=== PATIENT | male | born 1935 | race Caucasian/White ===

== ENCOUNTER 2018-07-22 10:53 | Inpatient (IN) | payer MEDICARE ==
--- NOTE | 2018-07-22 11:35 | CT ---
CT Brain WO Con History: Left-sided weakness Comparison: None. Findings: No acute hemorrhage. No midline shift or mass effect. Extensive chronic microvascular ische rossana changes. There is a likely subacute infarction of the right edmonds radiata. 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 Hypodens ity of the hernando suggestive of an old infarct. Calvarium is intact. Paranasal sinuses and mastoids are clear. Impression: Findings concerning for a subacute right edmonds radiata white matter infarction superimpo sed upon extensive microvascular ischemic changes.
[2018-07-22 11:40] LABS: #Lymphocytes 1.1 thou/uL (1.20-3.40); #Monocytes 0.3 thou/uL (0.11-0.59); #Neutrophils 4.5 thou/uL (1.40-6.50); %Basophils 0.2 % (0.0-1.0); %Eosinophils 0.3 % (0.0-10.0); %Lymphocytes 18.3 % (21.0-51.0); %Monocytes 5.6 % (0.0-10.0); %Neutrophils 75.7 % (42.0-75.0); Hemoglobin 13.5 g/dL (14.0-18.0); Mean Corpuscular HGB CONC 33.6 g/dL (32.0-36.0); Mean Corpuscular Hemoglobin 30.8 pg (27.0-31.0); Mean Corpuscular Volume 91.6 fL (78.0-98.0); Mean Platelet Volume 7.9 fL (7.4-10.4); Platelet Count 179 thou/uL (130-400); RBC Distribution Width 12.6 % (11.5-14.5); Red Blood Cell (RBC) Count 4.39 mill/uL (4.70-6.10); White Blood Cell (WBC) Count 5.9 thou/uL (4.8-10.8)
--- NOTE | 2018-07-22 11:41 | RAD ---
Chest one view HISTORY: Fall. Weakness. FINDINGS: No comparison. Cardiac silhouette is magnified by projection. Pulmonary vasculature is unre markable. Mediastinum is midline. Ill-defined opacity at the left base obscures the left hemidiaphragm. There is also ill-defined opaci ty at the right base that does not obscure the right hemidiaphragm. No evidence of pneumothorax. IMPRESSION: Probable bibasilar infiltrates. Possible left pleural fluid. Cause is not evident. Please consider follow-up PA and lateral views of the chest in full inspiration when patient can unde rgo that exam.
[2018-07-22] MEDS ORDERED: Aspirin Chewable 81 MG TAB ONE (13:20)
[2018-07-22] MEDS ORDERED: cefTRIAXone\\ROCEPHIN 1 GM VIAL ONE (13:20)
[2018-07-22] MEDS ORDERED: Acetaminophen 325 MG TAB PO PRN (13:34)
[2018-07-22] MEDS ORDERED: Ondansetron ODT 4 MG TAB PO PRN (13:34)
--- NOTE | 2018-07-22 14:14 | HP ---
PRIMARY CARE PROVIDER: Dr. Gonsalves. HISTORY OF PRESENT ILLNESS: The patient states he tried to get off the sofa this morning. His left leg and arm would not work right. He denies headaches, dizziness, visual disturbance. He was brought to the emergency room. Brain CT suggested a subacute right infarction. He was referred to the Hospitalist Service. PAST MEDICAL HISTORY: Hypertension. CURRENT MEDICATIONS: 1. Clonidine 0.1 mg p.r.n. for systolic blood pressure greater than 160. 2. Aspirin 81 mg a day. 3. Lisinopril 40 mg a day. 4. Metoprolol 50 mg twice a day. ALLERGIES: NONE. PAST SURGICAL HISTORY: None. FAMILY HISTORY: His mother had hypertension and a stroke. Father unknown. SOCIAL HISTORY: . 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 No tobacco. He drinks 1 to 2 beers maybe a day. REVIEW OF SYSTEMS: GENERAL: No headaches, dizziness, or fainting. EYES: No double vision, blurred vision, flashing light. EAR, NOSE, THROAT: No ear pain or drainage. No nasal bleeding. No trouble swallowing. CARDIAC: No chest pain, orthopnea or paroxysmal nocturnal dyspnea. RESPIRATION: No cough, wheezing or asthma. GASTROINTESTINAL: No nausea, vomiting, abdominal pain, diarrhea, or constipation. GENITOURINARY: No hematuria, dysuria, nocturia. MUSCULOSKELETAL: No pain or swelling in his arms or legs. NEUROLOGICAL: No previous stroke. PSYCHIATRIC: No anxiety, depression. SKIN: He bruises easily. No rash. HEME/LYMPH: No tender or swollen lymph nodes in axilla, inguinal, or cervical area. PHYSICAL EXAMINATION: GENERAL: Alert, oriented, cooperative man. VITAL SIGNS: Blood pressure 175/81, pulse 65, respirations 18, temperature 98.2, room air sat 94%. HEENT: Examination of his head, eyes, ears, nose, and throat revealed pupils are equal, round, and reactive. Extraocular movements are intact. Sclerae are white. Tympanic membranes clear. Nose clear. Oral mucous membranes are wet. Dental hygiene, multiple caries. NECK: No jugular venous distention, adenopathy, or thyromegaly. CHEST: Clear to auscultation and percussion. HEART: Regular rate and rhythm. First and second second heart sounds clear. No murmurs or gallops. ABDOMEN: Soft. Bowel sounds are normal. There is no hepatosplenomegaly. No mass. No rebound. EXTREMITIES: Reveal no cyanosis, clubbing, or edema. PULSES: Carotid, radial, femoral and dorsalis pedis pulses intact. SKIN: Warm and dry with ecchymoses on his arms. LYMPHATIC SURVEY: No tender or swollen lymph nodes in axilla, inguinal, or cervical area. NEUROLOGICAL: Cranial nerves revealed a left central seventh palsy. Deep tendon reflexes increased on the left. His foot and hand strength are normal. His proximal muscle strength is very weak on the left side. Toe is upgoing bilaterally. IMAGING STUDIES: CT scan of the brain reviewed by me reveals no acute finding. The radiologist suggest subacute infarction in the right edmonds radiata. Chest x-ray, supine film, poor inspiration. Left hemidiaphragm is not clear. The right hemidiaphragm is clear, but there was question of an infiltrate, reviewed by me. LABORATORY DATA: White count 5.9, hemoglobin 13.5, platelet count 117,000. Troponin less than 0.01. C-reactive protein less than 0.05. I do not know why that was not done. There is no comprehensive metabolic profile available at this point. ADMITTING DIAGNOSES: 1. 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 2. Hypertension, under controlled. 3. Abnormal chest x-ray. No history of fever, chills, significant cough. Physical examination was unrevealing. White count is normal. I doubt CVA. We will hold antibiotics at this point. Blood cultures have been done. We will repeat CBC. Suggest repeat chest x-ray tomorrow. We will give aspirin. Start Lipitor 40 mg a day. Neurology consult. MRI for his stroke and control his hypertension. Job ID: [id number]
[2018-07-22 16:45] VITALS: BMI 24.2
[2018-07-22] MEDS ORDERED: Lorazepam 2 MG/ML VIAL SLOW IVP SCH (17:15)
[2018-07-22] MEDS: Atorvastatin Calcium 40 MG TAB PO SCH (21:08)
--- NOTE | 2018-07-22 22:34 | CON ---
DATE OF CONSULTATION: 07/22/2018 CONSULTING PHYSICIAN: Hospitalist Service. IMPRESSION: 1. Right edmonds radiata stroke resulting in left hemiparesis. 2. Hypertension. 3. Aspirin failure. PLAN: 1. Lipid profile. 2. Carotid ultrasound. 3. Echocardiogram. 4. Add Plavix 75 mg per day. 5. Add Lipitor 20 mg per day. 6. PT and OT evaluations for rehab screening. HISTORY OF PRESENT ILLNESS: Mr. Abdi is an 83-year-old gentleman who developed left-sided weakness 3 days ago. He did not seek medical attention right away. He feels like he has gotten a little better. He has no past history of stroke symptoms. He reports that he was taking aspirin daily. PAST MEDICAL HISTORY: As listed above. ALLERGIES: NONE. SOCIAL HISTORY: No tobacco or alcohol use. FAMILY HISTORY: Positive for stroke. MEDICATION LIST: Reviewed. REVIEW OF SYSTEMS: Ten-system review of systems is otherwise unremarkable. PHYSICAL EXAMINATION: GENERAL: He is a thin elderly gentleman, no acute distress. VITAL SIGNS: Blood pressure 154/78, pulse 57, respirations 18, temperature 97.7. HEENT: Pupils equal and reactive. Conjunctivae clear. Oropharynx clear. NECK: Supple. No lymphadenopathy. EXTREMITIES: No cyanosis or edema. NEUROLOGIC: He was alert and cooperative. His speech was fluent and clear. Cranial nerve exam showed flattening of the left nasolabial fold. Motor exam showed only partial antigravity strength in the left arm and leg. Sensation was intact to touch. No abnormal movements were seen. LABORATORY DATA: Laboratory studies only include a CBC and chemistry panel. Cholesterol ratio was 4.5. SUMMARY: Elderly gentleman with acute lacunar infarction, failed aspirin. I would advance him to Plavix and add a statin. Job ID: [id number]
[2018-07-23 05:59] LABS: #Eosinphils 0.1 thou/uL (0.0-0.7); #Lymphocytes 1.1 thou/uL (1.20-3.40); #Monocytes 0.4 thou/uL (0.11-0.59); #Neutrophils 3.4 thou/uL (1.40-6.50); %Basophils 0.3 % (0.0-1.0); %Eosinophils 1.4 % (0.0-10.0); %Lymphocytes 22.6 % (21.0-51.0); %Monocytes 7.5 % (0.0-10.0); %Neutrophils 68.3 % (42.0-75.0); Hemoglobin 13.4 g/dL (14.0-18.0); Mean Corpuscular Hemoglobin 31.2 pg (27.0-31.0); Mean Corpuscular Volume 91.6 fL (78.0-98.0); Mean Platelet Volume 7.9 fL (7.4-10.4); Platelet Count 162 thou/uL (130-400); RBC Distribution Width 12.5 % (11.5-14.5); Red Blood Cell (RBC) Count 4.29 mill/uL (4.70-6.10); White Blood Cell (WBC) Count 4.9 thou/uL (4.8-10.8)
[2018-07-23] MEDS ORDERED: Lorazepam 2 MG/ML VIAL SLOW IVP SCH (06:00)
[2018-07-23 06:21] LABS: Anion Gap 11 mmol/L (10-20); BUN (Urea Nitrogen) 8 mg/dL (8.4-25.7); Calc. Creatinine Clearance 85 mL/min (70-130); Calcium 9.1 mg/dL (7.8-10.44); Carbon Dioxide 29 mmol/L (23-31); Cardiac Risk 3.2 (Less than 4.5); Chloride 97 mmol/L (98-107); Cholesterol 170 mg/dl (< 200 Desired); Estimated GFR-MDRD Greater than 90; Glucose 95 mg/dL (83-110); HDL Cholesterol 53 mg/dL (>60 Neg Risk); LDL Cholesterol, Calculated 103 mg/dL; Potassium 3.6 mmol/L (3.5-5.1); Sodium 133 mmol/L (136-145); Triglycerides 69 mg/dL (Less than 150)
[2018-07-23] MEDS ORDERED: Clopidogrel Bisulfate 300 MG TAB PO SCH (07:15)
--- NOTE | 2018-07-23 07:28 | PDOC.PN ---
- Subjective Encounter Start Date: 07/23/18 Encounter Start Time: 07:26 Subjective: alert, reports increaed strength affected side - Objective Resuscitation Status - Order Detail: 07/22/18 13:31 Resuscitation Status Routine Resuscitation Status: FULL: Full Resuscitation MAR Reviewed: Yes Vital Signs & Weight: Vital Signs (12 hours) Temp Pulse Resp BP BP Pulse Ox 07/23/18 03:51 97.8 F 62 18 183/73 H 94 L 07/23/18 00:00 97.6 F 60 18 153/71 H 93 L 07/22/18 20:34 95 07/22/18 20:00 97.4 F L 60 18 143/57 H 95 Weight Weight 173 lb 12.8 oz I&O: 07/22/18 07/23/18 07/24/18 06:59 06:59 06:59 Intake Total 240 Balance 240 Result Diagrams: 07/23/18 05:19 07/23/18 05:19 Phys Exam - Physical Examination Neck: no JVD Respiratory: clear to auscultation bilateral Cardiovascular: RRR, no significant murmur Gastrointestinal: soft, no distention Musculoskeletal: no edema L central 7th palsy, increased strenght against gravity on L Dx/Plan (1) CVA (cerebral vascular accident) Code(s): I63.9 - CEREBRAL INFARCTION, UNSPECIFIED Status: Acute Qualifiers: CVA mechanism: thrombosis Laterality of affected vessel: right (2) HTN (hypertension) Code(s): I10 - ESSENTIAL (PRIMARY) HYPERTENSION Status: Chronic Qualifiers: Hypertension type: essential hypertension Qualified Code(s): I10 - Essential (primary) hypertension (3) Hemiplegia and hemiparesis following cerebral infarction affecting left dominant side Code(s): I69.352 - HEMIPLGA FOLLOWING CEREBRAL INFRC AFF LEFT DOMINANT SIDE Status: Acute - Plan plan discussed w/ family, PT/OT load with plavix, then 75 mg daily -: ASA 81 mg daily -: statin -: rehab referral * .
[2018-07-23] MEDS: Aspirin 81 mg Enteric Coated Tablet PO SCH (08:11)
[2018-07-23] MEDS: Lisinopril 20 MG TAB PO SCH (08:13)
[2018-07-23] MEDS: Metoprolol Tartrate 50 MG TAB PO SCH ×2 (08:13→17:50)
[2018-07-23] MEDS: Enoxaparin Sodium 40 MG/0.4 ML SYRINGE SC SCH (08:14)
--- NOTE | 2018-07-23 08:14 | RAD ---
CHEST 1 VIEW: Date: 07/23/18 HISTORY: Chest pain. COMPARISON: Radiograph from prior day. FINDINGS: The previously described opacities in the lower lobe have resolved given the upright view. Lungs are clear. No pneumothorax. No effusion. No acute osseous abnormality. IMPRESSION: No acute intrathoracic abnormality. POS: [facility]
--- NOTE | 2018-07-23 08:53 | MRI ---
Brain MRI without contrast: 07/23/2018 COMPARISON: None HISTORY: Left-sided weakness TECHNIQUE: Multiplanar multisequence MR imaging of the brain obtained without contrast FINDINGS: The diffusion weighted imaging demonstrates a focus of restricted diffusion consistent with acute infarction measuring 1.6 cm in AP dimension involving the deep and periventricular white matter superior to the basal ganglia on the right. There is associated increased T2 and FLAIR signal. No associated midline shift or mass effect. There are numerous scattered foci of increased T2 and FLAIR signal throughout the periventricular, de ep, and subcortical white matter, evidence of prominent small vessel disease. There is moderate diffuse cerebral volume loss with associated prominence of the CSF containing space s. There is an old lacunar infarction within the midportion of the hernando. Gradient echo imaging demonstrates no evidence for intracranial hemorrhage. The regional bone marrow signal intensity appears grossly unremarkable. The visualized paranasal sinuses and mastoid air cells are grossly unremarkable. Arterial flow voids at the axial level of the skull base appear grossly unremarkable. IMPRESSION: Acute infarction on the right as detailed above. Prominent small vessel disease. No evide nce for intracranial hemorrhage.
[2018-07-23] MEDS ORDERED: Aspirin 325 mg Enteric Coated Tablet PO SCH (09:00)
--- NOTE | 2018-07-23 10:28 | ULT ---
CAROTID ARTERIAL DOPPLER ULTRASOUND: 07/23/2018 COMPARISON: None. HISTORY: Stroke. Assess for carotid artery disease. TECHNIQUE: Multiplanar gil-scale sonographic imaging of the arterial structures of the neck obtained with color -flow and spectral analysis. FINDINGS: There is mild intimal thickening involving the proximal right CCA. Antegrade blood flow and normal a rterial waveforms are seen within the carotid and vertebral system on the right. There is calcified plaque within the distal right CCA and proximal right ICA. There is partially calcified atherosclerotic plaque within the left CCA. There is mild intimal thick ening of the proximal left CCA. Antegrade blood flow and normal arterial waveforms are documented within the left carotid and vertebral system. Peak systolic velocity within the right CCA is 92 cm/s and within the left CCA is 70 cm/s. Peak syst olic velocity within the right internal carotid artery is 148 cm/s and within the left internal carotid artery is 111 cm/s. The ICA/CCA ratio is 1.6 bilaterally. IMPRESSION: Elevated velocity within the right internal carotid artery correlates with a moderate degree of steno sis (50%-69%). This could be better assessed via CT angiogram of the neck. Transcribed Date/Time: 07/23/2018 10:51 AM
--- NOTE | 2018-07-23 13:28 | PDOC.EVN ---
Event Note - Event Note Event Note: MRI Positive for acute CVA- cont current Tx
[2018-07-23] MEDS ORDERED: hydrALAZINE 20 MG/ML VIAL SLOW IVP PRN (16:55)
[2018-07-23] MEDS ORDERED: Labetalol HCl 100 MG/20 ML VIAL SLOW IVP PRN (16:55)
[2018-07-23] MEDS ORDERED: Amlodipine 5 MG TAB PO SCH (17:00)
[2018-07-23] MEDS: Atorvastatin Calcium 40 MG TAB PO SCH (20:07)
[2018-07-23] MEDS: Zolpidem Tartrate 5 MG TAB PO PRN (20:20)
[2018-07-23] MEDS ORDERED: Prevnar 13-Val Conj/PF 0.5 ML SYRINGE IM ONE (21:00)
[2018-07-24] MEDS: Metoprolol Tartrate 50 MG TAB PO SCH ×2 (08:47→16:45)
[2018-07-24] MEDS: Lisinopril 20 MG TAB PO SCH (08:47)
[2018-07-24] MEDS: Aspirin 81 mg Enteric Coated Tablet PO SCH (08:47)
[2018-07-24] MEDS: Enoxaparin Sodium 40 MG/0.4 ML SYRINGE SC SCH (08:48)
[2018-07-24] MEDS: Clopidogrel Bisulfate 75 MG TAB PO SCH (08:48)
[2018-07-24] MEDS ORDERED: Amlodipine 5 MG TAB PO SCH ×3 (09:00→21:00)
--- NOTE | 2018-07-24 13:04 | CT ---
CTA NECK: Multiple axial tomograms were obtained through the neck with IV enhancement following an angio protoc ol with multiplanar reconstruction and 3D post processing. INDICATIONS: Abnormal carotid Doppler ultrasound. Carotid Doppler exam 07/23/2018 described evidence of hemodynami kev significant stenosis in the right internal carotid artery. FINDINGS: No evidence of stenosis seen at the origin of the arch vessels. Common carotid arteries are unremarkable bilaterally with no stenosis or significant atherosclerotic disease. The right bulb and proximal right ICA show moderate atherosclerotic change with densely calcified khang que in the proximal right ICA. There is soft plaque slightly above the bulb. These changes result i n stenosis of the right internal carotid artery. The degree of stenosis is calculated at 50-60% diam eter stenosis by NASCET criteria. This is hemodynamically significant and does correlate with caroti d velocities. The left common carotid bifurcation also shows atherosclerotic change and mild stenosis of the proxim al left internal carotid artery. The left internal carotid artery is very tortuous above the bulb wi th a mild kink which produces mild to moderate stenosis. There is aneurysmal dilatation just beyond this sharp kink measured at approximately 6 mm. The normal limit at this location measured approxima tely 4 mm. The left internal carotid artery is slightly smaller than the right. The degree of steno sis at the origin of the left ICA is determined at mild stenosis, less than 50% diameter when compare d to the more distal left ICA. Review of soft tissues shows evidence of right hilar adenopathy. This is seen on the very 1st image and is incompletely evaluated. Suggest further evaluation with chest CT. No other soft tissue abnormality in the neck identified. IMPRESSION: 1. Evidence of hemodynamically significant stenosis in the right proximal internal carotid artery w ith moderate atherosclerotic changes at this location. 2. Kink in the left internal carotid artery above the bulb with tortuosity. There is slight aneurys mal dilatation in this artery just above this kink. Mild stenosis at the origin of the left internal carotid artery due to atherosclerotic change. 3. Soft tissue evaluation shows evidence of right hilar adenopathy on the very 1st image of this exa m. This is incompletely evaluated. Recommend CT chest with contrast to further evaluate this jairin g. POS: [facility]
[2018-07-24] MEDS ORDERED: hydrALAZINE 25 MG TAB PO SCH (15:00)
[2018-07-24] MEDS ORDERED: Atorvastatin Calcium 20 MG TAB PO SCH (21:00)
--- NOTE | 2018-07-24 21:36 | PDOC.PN ---
- Subjective Encounter Start Date: 07/24/18 Encounter Start Time: 11:30 Patient seen and examined for Acute CVA. Left sided strength improving. No new deficits. No new complaints. No overnight events - Objective Resuscitation Status - Order Detail: 07/22/18 13:31 Resuscitation Status Routine Resuscitation Status: FULL: Full Resuscitation MAR Reviewed: Yes Vital Signs & Weight: Vital Signs (12 hours) Temp Pulse Pulse Pulse Resp BP BP 07/24/18 19:45 97.9 F 59 L 16 07/24/18 16:44 66 07/24/18 16:00 98 F 66 16 07/24/18 15:42 61 65 154/74 H 172/65 H 07/24/18 11:43 56 L 07/24/18 11:32 97.5 F L 56 L 18 BP Pulse Ox Pulse Ox 07/24/18 19:45 149/69 H 96 07/24/18 16:44 07/24/18 16:00 172/65 H 98 07/24/18 15:42 98 07/24/18 11:43 07/24/18 11:32 207/99 H 96 Weight Weight 173 lb 12.8 oz I&O: 07/23/18 07/24/18 07/25/18 06:59 06:59 06:59 Intake Total 240 680 720 Output Total 650 1150 Balance 240 30 -430 Result Diagrams: 07/23/18 05:19 07/23/18 05:19 Radiology Reviewed by me: Yes (MRI - Acute Rt sided CVA) EKG Reviewed by me: Yes (Tele SR) Phys Exam - Physical Examination Constitutional: NAD Respiratory: no wheezing, no rales, no rhonchi, clear to auscultation bilateral Cardiovascular: RRR, no rub no heave/pulsations Gastrointestinal: soft, non-tender, no distention, positive bowel sounds Musculoskeletal: no edema, pulses present Neurological: normal sensation LLE>LUE weakness, no new deficits Psychiatric: normal affect, A&O x 3 Skin: no rash Dx/Plan - Plan plan discussed w/ family, PT/OT, rn social work, speech therapy, DVT proph w/ lovenox, DVT proph w/SCDs IMPRESSION: Acute Rt sided CVA causing Left sided hemiparesis HTN urgency Carotid stenosis Mild hyponatremia Mild anemia - chronic PLAN: Cont ASA/Plavix Add Echo Add CT neck per radiology recs Cont Statins Stroke team To rehab once above w/u completed Review of Systems - Review of Systems Respiratory: negative: Cough, Dry, Shortness of Breath, Hemoptysis, SOB with Excertion, Pleuritic Pain, Sputum, Wheezing Cardiovascular: negative: chest pain, palpitations, orthopnea, paroxysmal nocturnal dyspnea, edema, light headedness, other - Medications/Allergies Allergies/Adverse Reactions: Allergies Allergy/AdvReac Type Severity Reaction Status Date / Time No Known Allergies Allergy Verified 07/22/18 16:53 Medications: Current Medications Acetaminophen (Tylenol) 650 mg PO Q4H PRN PRN Reason: Headache/Fever/Mild Pain (1-3) Amlodipine Besylate (Norvasc) 5 mg PO DAILY [facility] Aspirin (Ecotrin) 81 mg PO DAILY [facility] Last Admin: 07/24/18 08:47 Dose: 81 mg Atorvastatin Calcium (Lipitor) 20 mg PO HS [facility] Last Admin: 07/24/18 20:52 Dose: 20 mg Clopidogrel Bisulfate (Plavix) 75 mg PO DAILY [facility] Last Admin: 07/24/18 08:48 Dose: 75 mg Hydralazine HCl (Apresoline) 10 mg SLOW IVP Q4H PRN PRN Reason: SBP > 180 and HR < 70 Last Admin: 07/24/18 11:43 Dose: 10 mg Lisinopril (Zestril) 40 mg PO DAILY [facility] Last Admin: 07/24/18 08:47 Dose: 40 mg Metoprolol Tartrate (Lopressor) 50 mg PO BID-[facility] Last Admin: 07/24/18 16:45 Dose: 50 mg Ondansetron HCl (Zofran Odt) 4 mg PO Q6H PRN PRN Reason: Nausea/Vomiting Sodium Chloride (Flush - Normal Saline) 10 ml IVF PRN PRN PRN Reason: Saline Flush Last Admin: 07/23/18 08:14 Dose: 10 ml Zolpidem Tartrate (Ambien) 5 mg PO HSPRN PRN PRN Reason: Insomnia Last Admin: 07/23/18 20:20 Dose: 5 mg
[2018-07-24] MEDS: Zolpidem Tartrate 5 MG TAB PO PRN (21:46)
--- NOTE | 2018-07-25 00:05 | CON ---
DATE OF CONSULTATION: HISTORY OF PRESENT ILLNESS: This is a very pleasant 83-year-old gentleman who noticed he had some clumsiness when trying to walk in the park about 5 days ago with his son. He fell down at that point. Two days later, he presented to Dr. Gonsalves's office who recommended a visit at the hospital; however, the patient deferred. On Saturday, he was unable to stand up and walk and slid to the floor due to left-sided weakness. He was admitted to the hospital with left hemiparesis. His cardiovascular risk factors include his age and hypertension with no smoking history and no known cholesterol elevation. SOCIAL HISTORY: He is retired from [employer]. He lives with his and son who works at the [employer]. He enjoys outdoor activities. PAST SURGICAL HISTORY: Negative. PHYSICAL EXAMINATION: GENERAL: Alert, cooperative gentleman. VITAL SIGNS: 5 foot 11 inches, 173 pounds. Blood pressure is , heart rate is 70. NECK: Without carotid bruits. LUNGS: He has clear lung duff. CARDIAC: Regular rate and rhythm. No murmurs. ABDOMEN: Obese, nontender. He has no aneurysm. EXTREMITIES: He has palpable femoral and popliteal pulses with no pedal pulses. He can easily lift his left leg against gravity; however, his arm function is markedly decreased. He is able to raise his arm against gravity and has a very weak diversified crops ii farmworker. He states these are better than they were when he presented to the hospital. LABORATORY DATA: I have reviewed his ultrasound suggesting a 50% to 69% stenosis and a CTA scan showing about 50% to 60% stenosis on the right. He has a very small ulceration in his right carotid bulb posteriorly. ASSESSMENT AND PLAN: Since the patient's medications included only clonidine and metoprolol and lisinopril at home and not aspirin, I think the addition of aspirin and Plavix are appropriate. If the ulcerated plaque was the source of his stroke, then the aspirin and Plavix should suffice. I will follow up with him in about 6 months with an ultrasound, but at this time, his stenosis does not appear to be severe enough to suggest that intervening on this would decrease his stroke risk in the future. Rehab hopefully will show continued improvement in this pleasant gentleman. Job ID: [id number]
[2018-07-25] MEDS ORDERED: Amlodipine 5 MG TAB PO SCH (09:00)
[2018-07-25] MEDS: Clopidogrel Bisulfate 75 MG TAB PO SCH (09:34)
[2018-07-25] MEDS: Lisinopril 20 MG TAB PO SCH (09:34)
[2018-07-25] MEDS: Aspirin 81 mg Enteric Coated Tablet PO SCH (09:34)
[2018-07-25] MEDS: Metoprolol Tartrate 50 MG TAB PO SCH (09:35)
[2018-07-25 12:14] VITALS: BP 177/74; TEMP 97.8
--- NOTE | 2018-07-25 12:37 | DIS ---
DATE OF ADMISSION: 07/22/2018 DATE OF DISCHARGE: 07/25/2018 DISCHARGE DISPOSITION: Inpatient rehabilitation. FOLLOWUP: 1. Follow up with primary care physician, Dr. Gonsalves in 1 week. 2. Follow up with Dr. Esau Sampson, in 2 weeks. 3. Follow up with Dr. Nitish Garcia in 1 to 2 months. ALLERGIES: NO KNOWN DRUG ALLERGIES. THE PATIENT WAS SEEN AND EXAMINED ON THE DAY OF DISCHARGE. DENIES ANY NEW COMPLAINTS. NO NEW FOCAL DEFICIT. DISCHARGE MEDICATION: 1. Aspirin 81 mg daily. 2. Plavix 75 mg daily. 3. Lipitor 20 mg at bedtime. 4. Amlodipine 5 mg b.i.d. 5. Metoprolol tartrate 50 mg b.i.d. 6. Lisinopril 40 mg daily. 7. Benadryl as needed. 8. Tylenol as needed. INPATIENT CONSULTANTS: 1. Neurology Dr. Sampson. 2. Cardiovascular, Dr. Garcia. BRIEF HOSPITAL COURSE: The patient is an 83-year-old male with hypertension, currently taking 81 mg aspirin, presented to the hospital with left-sided weakness. His workup was consistent with acute CVA. MRI of the brain was positive for 1.6 cm in the AP dimension involving the deep and periventricular white matter superior to the basal ganglia on the right. He was seen by Neurology, Dr. Sampson, who recommended admission of Plavix. Carotid Dopplers showed moderate degree of stenosis in the right internal carotid artery. He underwent CTA and was also evaluated by Dr. Garcia. He will follow up with Dr. Garcia as outpatient. His echocardiogram showed left ventricular ejection fraction of 60% to 65% with 1/3 diastolic dysfunction. He will be discharged to inpatient rehabilitation. FINAL DIAGNOSES: 1. Acute cerebrovascular accident as discussed above causing left-sided hemiparesis. 2. Hypertension with hypertensive urgency. 3. Right carotid stenosis. He was advised to follow up with Dr. Garcia as outpatient. 4. Hyperlipidemia. 5. Mild hyponatremia. 6. Mild chronic anemia. TIME SPENT: Total time coordinating the discharge of this patient was 35 minutes. Job ID: [id number]
--- NOTE | 2018-07-26 16:10 | EKG ---
Test Reason : Blood Pressure : / mmHG Vent. Rate : 064 BPM Atrial Rate : 064 BPM P-R Int : 170 ms QRS Dur : 090 ms QT Int : 434 ms P-R-T Axes : 036 002 052 degrees QTc Int : 447 ms Normal sinus rhythm Normal ECG No ST elevation/NE Confirmed by JOSH KHAN M.D. ([id number]), editorial specialist MORENA URIBE ([id number]) on 07/26/2018 4:10:23 PM Referred By: Confirmed By:JOSH KHAN M.D.
== END 2018-07-25 11:54 | DRG 65 ==
LOC: ERS 10:53 → 2SE 15:07
PROVIDERS: ADMIT Internal Medicine; ATTEND Internal Medicine
DX: I63.81 Other cerebral infarction due to occlusion or stenosis of small artery (principal); G81.14 Spastic hemiplegia affecting left nondominant side; E87.1 Hypo-osmolality and hyponatremia; I10 Essential (primary) hypertension; G51.0 Bell's palsy; F32.9 Major depressive disorder, single episode, unspecified; R29.705 NIHSS score 5; I16.0 Hypertensive urgency; D64.9 Anemia, unspecified; I65.21 Occlusion and stenosis of right carotid artery; Z79.82 Long term (current) use of aspirin; Z79.899 Other long term (current) drug therapy
CPT/HCPCS: 36415; 70450; 70498; 70551; 71045; 80048; 80061; 84484; 85025; 86140; 87040; 90471; 90670; 93005; 93306; 93880; 96365; G0009; J0360; J0696; J1650; J2060

== ENCOUNTER 2018-12-24 09:42 | Inpatient (IN) | payer MEDICARE ==
[2018-12-24 10:44] LABS: #Lymphocytes 0.7 thou/uL (1.20-3.40); #Monocytes 0.8 thou/uL (0.11-0.59); #Neutrophils 10.2 thou/uL (1.40-6.50); %Basophils 0.2 % (0.0-1.0); %Eosinophils 0.2 % (0.0-10.0); %Lymphocytes 5.8 % (21.0-51.0); %Monocytes 6.5 % (0.0-10.0); %Neutrophils 87.2 % (42.0-75.0); Hemoglobin 8.7 g/dL (14.0-18.0); Mean Corpuscular Volume 96.9 fL (78.0-98.0); Mean Platelet Volume 6.9 fL (7.4-10.4); Platelet Count 228 thou/uL (130-400); RBC Distribution Width 13.7 % (11.5-14.5); Red Blood Cell (RBC) Count 2.91 mill/uL (4.70-6.10); White Blood Cell (WBC) Count 11.7 thou/uL (4.8-10.8)
[2018-12-24 11:02] LABS: ALT (SGPT) 10 U/L (8-55); AST (SGOT) 17 U/L (5-34); Albumin 3.7 g/dL (3.4-4.8); Alkaline Phosphatase 73 U/L (40-110); Anion Gap 15 mmol/L (10-20); BUN (Urea Nitrogen) 14 mg/dL (8.4-25.7); Bilirubin, Total 1.2 mg/dL (0.2-1.2); Calc. Creatinine Clearance 0 mL/min (70-130); Calcium 8.9 mg/dL (7.8-10.44); Carbon Dioxide 23 mmol/L (23-31); Chloride 91 mmol/L (98-107); Estimated GFR-MDRD 66; Globulin 2.5 g/dL (2.4-3.5); Glucose 110 mg/dL (83-110); Potassium 3.7 mmol/L (3.5-5.1); Protein, Total 6.2 g/dL (5.8-8.1); Sodium 125 mmol/L (136-145)
--- NOTE | 2018-12-24 11:35 | CT ---
Head CT without contrast 12/24/2018: COMPARISON: 07/22/2018 HISTORY: Fall, trauma TECHNIQUE: Axial CT imaging at 5 mm intervals from vertex through skull base without contrast FINDINGS: Punctate foci of soft tissue calcification again noted superior to the right orbit. Imaged paranasal sinuses appear grossly unremarkable. There is debris within the external auditory canal on the right. There is new nonspecific partial opa cification of the tympanic cavity and mastoid air cells on the right. There is no displaced calvarial fracture. There is periventricular and deep white matter hypodensity, evidence of small vessel disease. There is subarachnoid hemorrhage lateral to the right cerebral peduncle as well as in the right supra clinoid region. There is also subarachnoid blood within the inferior medial aspect of bilateral frontal lobes. There is a questionable focus of small volume intraventricular hemorrhage within the p osterior horn of the left lateral ventricle on axial image 13. Additional subtle small volume subarachnoid blood noted in the region of the inferior aspect of the m iddle cranial fossa on the right on axial image 9. IMPRESSION: Multifocal subarachnoid hemorrhage. Probable trace intraventricular blood within left lat eral ventricle. Results were called to Dr. Casey at 11:30 AM 12/24/2018. Subarachnoid blood could be on the basis of t rauma or intracranial aneurysm rupture.
--- NOTE | 2018-12-24 11:38 | CT ---
CT OF THE CHEST, ABDOMEN AND PELVIS WITH IV CONTRAST INDICATION: History of fall COMPARISON: None. FINDINGS: CHEST: Lungs:Clear. Heart and great vessels:There are moderate calcifications involving the thoracic aorta. Pleural space: No pneumothorax or effusion. Additional findings: Small calcified lymph nodes within the left hilar region and mediastinum. There is a small hiatal hernia. ABDOMEN: Liver:There are tiny hypodensities likely reflecting tiny cysts. Spleen:Calcified granuloma Pancreas:Normal appearing. Adrenal Glands:Normal appearing. Kidneys:Normal appearing. Aorta:There are severe vascular calcifications seen involving the visualized vasculature. Additional findings: No free fluid or free air. PELVIS: Bowel:There is a moderate amount of retained stool within the colon. Bladder:Moderately distended Reproductive structures:The prostate is enlarged measuring 6.2 cm in its greatest axial dimension. Rectum and perirectal soft tissues:Normal appearing. Additional findings: No free fluid or free air. OSSEOUS STRUCTURES: There are healing left posterior lateral ninth and eighth rib fractures. No acute rib fracture is dem onstrated. There is diffuse osteopenia. There is thoracolumbar spondylosis. There is scattered degenerative and osteoarthritic changes. There is a 8 cm subcutaneous hematoma overlying the left posterior iliac iliac bone. IMPRESSION: 1. Large subcutaneous hematoma overlying the left posterior pelvis. 2. No additional acute acute traumatic injury seen. 3. Healing left ninth and eighth rib fractures 4. Moderate distention of the bladder may reflect a component of chronic bladder outlet obstruction f rom prostate enlargement. 5. Moderate amount of retained stool within the colon
--- NOTE | 2018-12-24 11:45 | CT ---
CT OF THE CERVICAL SPINE WITHOUT CONTRAST: DATE: 12/24/18 COMPARISON: None. HISTORY: Fall this morning. Neck pain. TECHNIQUE: Multiple contiguous axial images were obtained in a CT of the cervical spine without contrast. Sagitt al and coronal reformats were performed. FINDINGS: Mild degenerative changes are seen in the cervical spine. The vertebral bodies demonstrate normal hei ght and alignment without fracture or subluxation. No prevertebral soft tissue swelling is seen. The posterior facets are well aligned. Normal alignment of the skull base with the cervical spine is seen. IMPRESSION: Degenerative changes of the cervical spine without acute osseous abnormality. POS: TPC
[2018-12-24 12:12] LABS: PTT 31.5 SEC (22.9-36.1)
[2018-12-24 12:16] LABS: INR-International Normal Ratio 1.1; Prothrombin Time 14.6 SEC (12.0-14.7)
[2018-12-24] MEDS ORDERED: Ondansetron PF 4 MG/2 ML Vial IVP PRN (12:52)
[2018-12-24] MEDS ORDERED: Dextrose 50% Abboject 50 ML SYRINGE SLOW IVP PRN (12:52)
[2018-12-24] MEDS ORDERED: Dextrose 5% in Water 1,000 ML IV PRN (12:52)
[2018-12-24] MEDS ORDERED: HumaLOG 300 UNITS/3 ML VIAL SC PRN (12:52)
[2018-12-24] MEDS ORDERED: hydrALAZINE 20 MG/ML VIAL SLOW IVP PRN (12:52)
[2018-12-24] MEDS ORDERED: Promethazine HCl 25 MG/ML VIAL IM PRN (12:52)
[2018-12-24] MEDS ORDERED: Gabapentin 100 MG CAP PO PRN (12:55)
[2018-12-24] MEDS ORDERED: traMADol HCl 50 MG TAB PO PRN (12:59)
[2018-12-24] MEDS ORDERED: Adacel (T-DAP) 0.5 ML SYRINGE ONE ×2 (13:37→13:49)
[2018-12-24] MEDS ORDERED: Iopamidol-370 76% 500 ML 1 ML ONE (13:52)
--- NOTE | 2018-12-24 15:30 | HP ---
This is Emanuel Napoles PA-C dictating a report for Temo Alvarado MD. HISTORY OF PRESENT ILLNESS: Mr. Abdi is an 83-year-old male, who came to the ER after an incident of ground level fall at home. Historian is the patient's son. The patient's son reports usually his father mobilized around the house using a walker. This morning, patient was reaching to make some coffee, lost his balance and fell. After the fall, the patient's loss of consciousness was unknown, but his mental status came back to his baseline like before. Patient's son also stated that patient has been suffered from multiple fall from home due to his loss of balance and using walker wrong way, which resulted many bruising with different stages. He can open his eyes , follow commands and answers question appropriate. Upon arrival in the ER, the patient's GCS is 14 with E3, V5, and M6. Vital signs stable. REVIEW OF SYSTEMS: Noncontributory except per HPI. PAST MEDICAL HISTORY: Hypertension; old stroke 3 to 4 months ago, in which he has weakness of the left side, but he has recovered better after period of rehabilitation facility and rehab at home. UTI, being treated for 2 days with ciprofloxacin 500 mg b.i.d. PAST SURGICAL HISTORY: No major surgical history. SOCIAL HISTORY: Denied drug use. Denied smoking or drinking history. The patient lives at home with his and his son. He is able to bathe himself. He is able to mobilize around the house using a walker. His diet is relatively normal with solid food and liquid. No trouble swallowing. CURRENT MEDICATION: 1. Metoprolol. 2. Hydrochlorothiazide 12.5 every day. 3. Lisinopril 40 mg once a day. 4. Atorvastatin 20 mg once a day. 5. Aspirin 81 mg once a day. 6. Plavix 75 mg once a day. PHYSICAL EXAMINATION: GENERAL: The patient is lying down in bed, in no acute respiratory distress. GCS 14, E3, V5, and M6. The patient oriented x2, consistent with his baseline at home. The patient is well-groomed elderly gentleman. SKIN: Dry. Mucous is dry and pink. HEENT: Ecchymosis of the right eye, but extraocular muscle is normal. Pupils equal bilaterally, reactive to light. No nasal redness or drainage from bilateral ears. NECK: Trachea midline. No bruising. No tender to palpation. CHEST: Atraumatic. No crepitus. No bruising. No tender to palpation. LUNGS: Clear bilaterally. HEART: Regular rate and rhythm. ABDOMEN: Soft, nondistended. PELVIS: Left lower flank and posterior pelvis, hematoma, tender to palpation. Pelvis is stable. EXTREMITIES: Neurovascularly intact x4. No new neuro deficits. LABORATORY AND DIAGNOSTIC DATA: Initial workup shows white count 11.7, hemoglobin 8.7, platelets 228. Sodium 125, potassium 3.7, creatinine 1.07. Brain CT scan shows multifocal subarachnoid hemorrhage, possible trace intraventricular blood within left lateral ventricle. Cervical spine CT, no acute traumatic change. Chest, abdominal, and pelvis CT scan shows large subcutaneous hematoma overlying the left posterior pelvis. His healing left 9th and 8th rib fractures. Moderate distention of the bladder. ASSESSMENT: 1. Status post ground level fall. 2. Multifocal subarachnoid hemorrhage. 3. Left lower posterior pelvis subcutaneous hematoma. 4. History of hypertension, stroke with left-sided hemiparesis. 5. Urinary tract infection, treated day 2 PLAN: The patient will be admitted to [facility] for neuro check q.2 hours. Neurosurgery consulted. We will repeat brain CT tomorrow. Discontinue aspirin and Plavix at the moment. We will resume his home medications. Diet is clear liquid diet for now with IV fluids. Non-pharmacological DVT prophylaxis, gastritis prophylaxis. Notified Dr. Alvarado before this dictation. Job ID: [id number] MTDD
[2018-12-24] MEDS ORDERED: Polyethylene Glycol 3350 17 GM Packet PO PRN (15:47)
[2018-12-24] MEDS: Sodium Chloride 0.9% 1,000 ML IV SCH (15:53)
[2018-12-24] MEDS ORDERED: Milk Of Magnesia 30 ML UDCUP PO SCH (16:00)
[2018-12-24] MEDS: Ferrous Sulfate 325 MG TAB PO SCH (16:12)
[2018-12-24] MEDS: Metoprolol Tartrate 50 MG TAB PO SCH (16:12)
[2018-12-24] MEDS: Acetaminophen 325 MG TAB PO SCH (16:12)
[2018-12-24 16:52] VITALS: BMI 23.8
--- NOTE | 2018-12-24 19:01 | PRG ---
DATE OF SERVICE: 12/24/2018 Rony Abdi is a patient, who has had multiple falls in the past. Past falls had resulted in the left flank, buttocks, thigh hematoma. He fell again today. He was evaluated with CT scan of the brain and cervical spine, chest, abdomen, and pelvis. Significant findings reveal some punctate areas of subarachnoid hemorrhage. The patient has had a stroke in August and spent some time in rehab. His is at home and has severe dementia. The patient has caregivers in and out of his home helping him, but he is at times independent with his walker. I agree with evaluation by Emanuel Napoles. Neurosurgery will see the patient. He has a GCS of 15 now. We will have Rehab evaluate him after Physical Therapy evaluation, see if he is a candidate for further rehab to help his stability to prevent further falls. The bruising over his left buttocks and thighs probably form an old fall. He has healing ribs from past falls. Diet as tolerated. Job ID: [id number]
[2018-12-24] MEDS: Atorvastatin Calcium 20 MG TAB PO SCH (20:43)
[2018-12-24] MEDS: Ciprofloxacin 500 MG TAB PO SCH (20:43)
[2018-12-24] MEDS: Famotidine/PF 20 mg/2ml Vial SLOW IVP SCH (20:43)
[2018-12-24] MEDS: Ascorbic Acid 500 mg Chewable Tablet PO SCH (20:43)
[2018-12-24] MEDS: Senokot S 8.6-50 MG TAB PO SCH (20:44)
--- NOTE | 2018-12-24 21:00 | CON ---
DATE OF CONSULTATION: 12/24/2018 This is Fran Dash PA-C dictating a report for Erik Goodwin MD. HISTORY OF PRESENT ILLNESS: Mr. Abdi is an 83-year-old gentleman, who presented to the ER today after losing his balance and falling at home. The patient lives at home with his and son. The patient had loss of consciousness for an unknown time. However, when he arrived at the ER, he had a GCS of 14 and was somnolent and somewhat confused. CT brain without contrast was completed, which showed a subarachnoid hemorrhage in the right supraclinoid region, as well as small volume interventricular hemorrhage in the posterior horn of the left lateral ventricle. CT of the cervical spine without contrast showed degenerative changes, but no acute osseous abnormalities. The patient has history of recent CVA in July of 2018, for which he subsequently participated in rehab. His home medications include 81 mg aspirin and 75 mg Plavix. Lab findings include sodium of 125, white blood cells of 11.7, and hemoglobin 8.7. Of note, patient with recent UTI and has been on Cipro 500 mg b.i.d. for 2 days. PHYSICAL EXAMINATION: The patient is somnolent, but arousable to verbal stimulation. GCS is 14. The patient is somewhat confused. He is able to state his full name, location at the hospital, and correct month and year. He stated today was , however, it is Saturday. He is able to identify a pen and stated its use. He defines an island as birds. His pupils are equal, round, and reactive to light. Patient has his eyes closed throughout the majority of the exam. However, toward the end of the visit, he did open them more spontaneously when answering questions. Noted right periorbital contusion. The patient has good strength in the trapezius, deltoids, triceps, biceps, and hand retort unloader bilaterally. He also has good strength in his bilateral lower extremities. IMPRESSION/DIAGNOSES: 1. Right subarachnoid hemorrhage and interventricular hemorrhage of the posterior horn of the left lateral ventricle, status post fall this morning. 2. History of prior cerebrovascular accident in July 2018. 3. Anticoagulated on 81 mg aspirin and 75 mg Plavix. 4. Hyponatremia. PLAN: I have discussed the patient's case with Dr. Goodwin. At this time, the patient is admitted to the [facility]. Orders have been written to hold his aspirin and Plavix at this time. We will repeat CT of the brain without contrast tomorrow morning. We will continue to monitor with q.2 hours neuro checks. No neurosurgical intervention is indicated at this time and it is highly unlikely patient will require surgical intervention. However, we will review repeat CT of the brain and monitor patient for any changes in neurological status. We will monitor blood pressure and keep systolic below 140. We will re-evaluate patient tomorrow. Job ID: [id number]
[2018-12-25] MEDS: Sodium Chloride 0.9% 1,000 ML IV SCH ×2 (00:21→06:38)
[2018-12-25] MEDS: Acetaminophen 325 MG TAB PO SCH ×5 (00:21→23:34)
--- NOTE | 2018-12-25 00:58 | PRG ---
DATE OF SERVICE: 12/25/2018 SUBJECTIVE: The patient was admitted today status post ground level fall, in which he sustained a right subarachnoid hemorrhage and intraventricular hemorrhage. The patient reportedly takes Plavix and aspirin. He has a prior history of a CVA this evening. Nurses reported no issues. His evaluation in the emergency department also showed multiple contusions. He had a hematoma to his pelvis area. The patient was noted to have multiple contusions in various stages of healing. 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 PHYSICAL EXAMINATION: VITAL SIGNS: Stable. The patient is afebrile. GENERAL: The patient is resting comfortably in bed. He is currently getting his evening medications from the nurse. His Yomi Coma Scale is 14. He is -1 for eye opening. She states that he has been sleeping as she just awakened him for his medications. HEENT: Head, there was contusion noted to his right periorbital area. LUNGS: Clear to auscultation bilaterally. HEART: Regular rate and rhythm. ABDOMEN: Soft with tenderness to palpation to the bilateral flanks with contusions noted and ecchymosis. The patient does have bowel sounds. EXTREMITIES: Neurovascularly intact x4. ASSESSMENT AND PLAN: 1. Status post ground level fall. 2. Right subarachnoid hemorrhage. 3. Intraventricular hemorrhage of the posterior horn of the left lateral ventricle. 4. Left lower posterior pelvis subcutaneous hematoma. 5. History of aspirin and Plavix use. 6. History of prior cerebrovascular accident. 7. History of hypertension. 8. Under treatment for urinary tract infection. PLAN: Plan will be to continue supportive care. He will have q.2 hour neuro checks and a repeat head CT in the morning, sooner as needed. The patient is having his Plavix and aspirin held. Tomorrow, the patient will begin physical and occupational therapy also. We will ask the Case Management team to discuss with family placement in light of the patient's physical findings of multiple recent falls and his ability to be the caregiver to his demented . The nurses will find out who is helping at home, home health versus family. There have been multiple reports that they do have help at home. Job ID: [id number]
[2018-12-25 05:31] LABS: #Lymphocytes 0.7 thou/uL (1.20-3.40); #Monocytes 0.4 thou/uL (0.11-0.59); #Neutrophils 6.7 thou/uL (1.40-6.50); %Basophils 0.1 % (0.0-1.0); %Lymphocytes 8.3 % (21.0-51.0); %Monocytes 5.1 % (0.0-10.0); %Neutrophils 86.4 % (42.0-75.0); Hemoglobin 7.2 g/dL (14.0-18.0); Mean Corpuscular HGB CONC 33.9 g/dL (32.0-36.0); Mean Corpuscular Hemoglobin 31.4 pg (27.0-31.0); Mean Corpuscular Volume 92.8 fL (78.0-98.0); Mean Platelet Volume 6.6 fL (7.4-10.4); Platelet Count 180 thou/uL (130-400); RBC Distribution Width 13.4 % (11.5-14.5); Red Blood Cell (RBC) Count 2.27 mill/uL (4.70-6.10); White Blood Cell (WBC) Count 7.8 thou/uL (4.8-10.8)
[2018-12-25 05:54] LABS: Phosphorus 2.7 mg/dL (2.3-4.7)
[2018-12-25 05:57] LABS: Anion Gap 12 mmol/L (10-20); BUN (Urea Nitrogen) 14 mg/dL (8.4-25.7); Calc. Creatinine Clearance 71 mL/min (70-130); Calcium 8.6 mg/dL (7.8-10.44); Carbon Dioxide 29 mmol/L (23-31); Chloride 92 mmol/L (98-107); Estimated GFR-MDRD Greater than 90; Glucose 82 mg/dL (83-110); Magnesium 1.8 mg/dL (1.6-2.6); Potassium 3.6 mmol/L (3.5-5.1); Sodium 129 mmol/L (136-145)
[2018-12-25] MEDS: Ciprofloxacin 500 MG TAB PO SCH ×2 (06:24→21:49)
--- NOTE | 2018-12-25 08:29 | CT ---
PRELIMINARY REPORT/[facility]/EMERGENCY AFTER HOURS PROCEDURE: PROCEDURE INFORMATION: Exam: CT Head Without Contrast Exam date and time: 12/25/2018 4:08 AM Clinical history: 83 years old, male; Exisiting [facility], f/u TECHNIQUE: Imaging protocol: Computed tomography of the head without contrast. COMPARISON: CT Brain WO Con 12/24/2018 11:11 AM FINDINGS: Brain: Subarachnoid blood in the region of the right [place] (decreased compared to 12/25/19 19), along a portion of the tentorium, and within cortical sulcal markings of the lateral right tempo ral lobe and the inferior frontal lobes. Periventricular white matter areas of decreased density whic h are likely secondary to chronic ischemia from microvascular change. Old small lacunar infarcts in e ach basal ganglia region, each thalamus, and the hernando. Diffuse cerebral atrophy. Ventricles: Ventricular prominence in this patient with diffuse cerebral atrophy. Small amount of acu te blood in the dependent portions of each occipital horn. Bones/joints: No acute fracture. Sinuses: No significant disease of the paranasal sinuses. Mastoid air cells: Right otomastoiditis. No left mastoiditis. Soft tissues: Posterior scalp soft tissue edema. IMPRESSION: 1. Subarachnoid blood in the region of the right [place] (decreased compared to 12/24/2018), along a portion of the tentorium, and within cortical sulcal markings of the lateral right temporal lobe and the inferior frontal lobes. 2. Small amount of acute blood in the dependent portions of each occipital horn - increased compared to the prior examination of 12/24/2018. 3. Posterior scalp soft tissue edema. 4. Right otomastoiditis. Thank you for allowing us to participate in the care of your patient. Dictated and Authenticated by: Thong Steve MD 12/25/2018 4:38 AM Central Time ([place] & [place]) FINAL REPORT EMERGENCY AFTER HOURS CT BRAIN: FINDINGS/IMPRESSION: I agree with the findings and impression given in the preliminary report per [facility] physician. There is slight increase in amount of intraventricular hemorrhage. Subarachnoid hemorrhage is also seen in th e frontal lobes and right temporal region. POS: CET
[2018-12-25] MEDS: Ferrous Sulfate 325 MG TAB PO SCH ×2 (08:46→18:13)
[2018-12-25] MEDS: Famotidine/PF 20 mg/2ml Vial SLOW IVP SCH ×2 (08:47→21:50)
[2018-12-25] MEDS: Senokot S 8.6-50 MG TAB PO SCH ×2 (08:47→21:50)
[2018-12-25] MEDS: Metoprolol Tartrate 50 MG TAB PO SCH ×2 (08:47→18:14)
[2018-12-25] MEDS: Ascorbic Acid 500 mg Chewable Tablet PO SCH ×2 (08:47→21:49)
[2018-12-25] MEDS: Lisinopril 20 MG TAB PO SCH (08:47)
[2018-12-25] MEDS: Polyethylene Glycol 3350 17 GM Packet PO SCH (08:48)
[2018-12-25] MEDS ORDERED: Boostrix 0.5 ML VIAL IM ONE (09:00)
--- NOTE | 2018-12-25 12:46 | PRG ---
DATE OF SERVICE: 12/25/2018 SUBJECTIVE: This is a 30-minute initial hospital visit note, in which 30 minutes were spent reviewing the imaging record, evaluation, and examination of patient and formulation of plan. Greater than 50% time was spent in counseling on Rony Abdi. I reviewed the notes of my colleague, Fran Dash PA-C and agree with its content. Mr. Abdi is a very pleasant 83-year-old man who fell on antiplatelet therapy, sustained basal, frontal and right temporal traumatic subarachnoid hemorrhage and perimesencephalic subarachnoid hemorrhage. Head CT demonstrates some blossoming of this with intraventricular hemorrhage. Otherwise, he is neurologically intact and has been radiologically stable. OBJECTIVE: NEURO: On exam, he is GCS 15. He follows commands in all 4 extremities. He is about to mobilize with our physiatry team. IMPRESSION: I will arrange for followup in 2 weeks in my clinic with repeat head CT and we should hold off on any antiplatelet agents during that time. I have educated him in this regard. I should note his spinal imaging is negative for acute abnormality. DIAGNOSES: Traumatic subarachnoid hemorrhage, status post fall. Job ID: [id number]
[2018-12-25 14:19] LABS: Hemoglobin 7.8 g/dL (14.0-18.0); Platelet Count 206 thou/uL (130-400)
--- NOTE | 2018-12-25 14:32 | PRG ---
DATE OF SERVICE: 12/25/2018 This is Emanuel Napoles PA-C dictating a report for Temo Alvarado MD. SUBJECTIVE: Mr. Singh is an 83-year-old male, who is status post recurrent ground level fall at home. The patient sustained subarachnoid and subdural hematoma with no loss of consciousness and no neurology deficits. On repeat head CT, there is a slight increase in intraventricular hemorrhage and subarachnoid hemorrhage is seen on frontal lobe and right temporal region. The patient remained neurologically intact. He tolerated with regular diet. His vital signs have been stable. GCS 15. Dr. Goodwin ordered continue followup, neuro check q.2 hours. No surgical intervention at this time. Discontinue aspirin and Plavix and the patient will need to see Dr. Goodwin in another two weeks with repeat a head CT. I did talk to both the patient and his son, Dominik Elise, today in regard to the patient's DNR. The patient wish to have DNR and his son is his power of assistant district attorney. His son stated that patient's advanced directive is on file. The last time he was here when he had stroke and the decision has not been changed since then for patient and his son agree that the patient will have DNR from now forward. OBJECTIVE: GENERAL: The patient is lying down in bed comfortable with no acute respiratory distress. SKIN: Moist and pink. GCS 15. The patient is oriented x3. VITAL SIGNS: Temperature is 99.2, heart rate 61, blood pressure 110/47, O2 saturation 100% on room air, and respiratory rate is 17. LUNGS: Clear bilaterally. HEART: Regular rate and rhythm. ABDOMEN: Soft and nondistended. Hematoma of the left flank is stable, EXTREMITIES: Neurovascularly intact x4. NEUROLOGIC: No focal neurology deficits. ASSESSMENT: 1. Status post ground level fall. 2. Intraventricular subarachnoid and subdural hemorrhage, slightly increased on CT scan with absence of neurology deficits. 3. History of hypertension and previous cerebrovascular accident, resolved. PLAN: We will continue supportive care. Continue neuro check q.2 hours. The patient will be transferred to the floor. Continue non-pharmacology DVT prophylaxis. DNR order is on file. The patient was seen and examined with Dr. Alvarado on round this morning. Job ID: [id number] [facility]
[2018-12-25] MEDS ORDERED: Prevnar 13-Val Conj/PF 0.5 ML SYRINGE IM ONE (17:30)
--- NOTE | 2018-12-25 21:07 | PRG ---
DATE OF SERVICE: 12/25/2018 SUBJECTIVE: The patient is currently on the [facility], status post ground level fall, when he sustained a traumatic subarachnoid hemorrhage. He also during his evaluation initially was noted to have multiple bruises in various stages of healing consistent with multiple recent falls. The patient today had no issues. He began working with Physical and Occupational Therapy. His repeat head CT showed just a mild increase, but neurologically he has remained a GCS of 14/15. He is tolerating a diet. Denies any pain. OBJECTIVE: VITAL SIGNS: Stable. The patient is afebrile. GENERAL: The patient is resting comfortably in bed. He was asleep when I entered the room, but awakened to verbal stimuli, giving him a GCS of 14. HEENT: Unchanged. LUNGS: Clear to auscultation bilaterally. HEART: Regular rate and rhythm. ABDOMEN: Soft with active bowel sounds and again noted flank contusions bilaterally. EXTREMITIES: Neurovascularly intact x4. ASSESSMENT: 1. Status post ground level fall, with evidence of numerous previous falls. 2. Right subarachnoid hemorrhage. 3. Intraventricular hemorrhage of the posterior horn of the left lateral ventricle. 4. Left lower posterior pelvis subcutaneous hematoma. 5. History of aspirin and Plavix use. 6. History of prior cerebrovascular accident. 7. History of hypertension. 8. Urinary tract infection, under treatment. PLAN: Plan will be to continue supportive care, serial exams, and discuss placement again in the morning with family. Job ID: [id number]
[2018-12-25] MEDS: Atorvastatin Calcium 20 MG TAB PO SCH (21:50)
[2018-12-26 05:18] LABS: #Lymphocytes 0.6 thou/uL (1.20-3.40); #Monocytes 0.5 thou/uL (0.11-0.59); #Neutrophils 9.3 thou/uL (1.40-6.50); %Basophils 0.2 % (0.0-1.0); %Eosinophils 0.1 % (0.0-10.0); %Lymphocytes 5.4 % (21.0-51.0); %Monocytes 5.2 % (0.0-10.0); %Neutrophils 89.1 % (42.0-75.0); Hemoglobin 8.3 g/dL (14.0-18.0); Mean Corpuscular HGB CONC 33.9 g/dL (32.0-36.0); Mean Corpuscular Hemoglobin 31.6 pg (27.0-31.0); Mean Platelet Volume 6.7 fL (7.4-10.4); Platelet Count 223 thou/uL (130-400); RBC Distribution Width 13.3 % (11.5-14.5); Red Blood Cell (RBC) Count 2.64 mill/uL (4.70-6.10); White Blood Cell (WBC) Count 10.4 thou/uL (4.8-10.8)
[2018-12-26 05:36] LABS: Anion Gap 10 mmol/L (10-20); BUN (Urea Nitrogen) 10 mg/dL (8.4-25.7); Calc. Creatinine Clearance 82 mL/min (70-130); Calcium 8.6 mg/dL (7.8-10.44); Carbon Dioxide 30 mmol/L (23-31); Chloride 91 mmol/L (98-107); Estimated GFR-MDRD Greater than 90; Glucose 123 mg/dL (83-110); Magnesium 1.7 mg/dL (1.6-2.6); Phosphorus 2.4 mg/dL (2.3-4.7); Sodium 127 mmol/L (136-145)
[2018-12-26] MEDS: Acetaminophen 325 MG TAB PO SCH ×3 (06:04→18:05)
[2018-12-26] MEDS: Ciprofloxacin 500 MG TAB PO SCH (06:04)
[2018-12-26] MEDS ORDERED: Magnesium 2 GM/50 ML 2 GM in Premix Bag 1 BAG IVPB SCH (08:15)
[2018-12-26] MEDS: Metoprolol Tartrate 50 MG TAB PO SCH ×2 (08:46→18:05)
[2018-12-26] MEDS: Senokot S 8.6-50 MG TAB PO SCH (08:46)
[2018-12-26] MEDS: Ferrous Sulfate 325 MG TAB PO SCH ×2 (08:46→18:05)
[2018-12-26] MEDS: Ascorbic Acid 500 mg Chewable Tablet PO SCH (08:46)
[2018-12-26] MEDS: Polyethylene Glycol 3350 17 GM Packet PO SCH (08:47)
[2018-12-26] MEDS: Lisinopril 20 MG TAB PO SCH (08:47)
[2018-12-26] MEDS: Famotidine/PF 20 mg/2ml Vial SLOW IVP SCH (08:47)
[2018-12-26 14:52] VITALS: BP 149/71; TEMP 97.6
[2018-12-26] MEDS ORDERED: Famotidine 20 MG TAB PO SCH (21:00)
--- NOTE | 2018-12-29 13:19 | DIS ---
DATE OF ADMISSION: 12/24/2018 DATE OF DISCHARGE: 12/26/2018 ADMISSION DIAGNOSES: 1. Status post ground level fall. 2. Subarachnoid and subdural hemorrhage with no neurology deficits. 3. History of hypertension and previous cerebrovascular accident, resolved. DISCHARGE DIAGNOSES: 1. Status post ground level fall. 2. Subarachnoid and subdural hemorrhage, stable on CT scan. Repeat CT scan with absence of neurology deficits. 3. History of hypertension, previous cerebrovascular accident, resoled. CONSULTING PHYSICIAN: Dr. Erki Goodwin. PROCEDURE: None. HOSPITAL COURSE: Mr. Abdi is an 83-year-old gentleman status post recurrent ground level fall at home. The patient sustained subarachnoid and subdural hematoma with no loss of consciousness and no neurology deficits. On repeat head CT, there is a slight increase in intraventricular hemorrhage and subarachnoid hemorrhage on frontal lobe, but the patient remains with no neurology deficits. GCS remained 15. The patient tolerated his regular diet, his vital signs stable. He is able to ambulate well and working with PT OT. He agreed to go to rehabilitation facility. PHYSICAL EXAMINATION: GENERAL: The patient lying down in bed comfortable. No acute respiratory distress. GCS 15. The patient alert, awake, oriented x3. VITAL SIGNS: Temperature 99, heart rate 61, blood pressure 110/47, O2 saturation 100% on room air, respiratory rate 17. LUNGS: Clear bilaterally. HEART: Regular rate and rhythm. ABDOMEN: Soft, nondistended. Hematoma of the posterior left flank is stable. EXTREMITIES: Neurovascularly intact x4. NEUROLOGIC: No focal neurology deficits. DISCHARGE DISPOSITION: Rehabilitation facility. DISCHARGE CONDITION: Fair. DISCHARGE INSTRUCTIONS: Patient is to take medication as directed. The patient is to work with PT/OT. The patient is to see Neurology physician, Dr. Goodwin in 10 days. Job ID: [id number]
--- NOTE | 2018-12-30 21:50 | PQF ---
AUDRA CUELLAR JR, RICHARD D MD [id number] [facility]- [id number] CLINICAL DOCUMENTATION CLARIFICATION FORM: POST DISCHARGE Addendum to original discharge summary date: ____ Late entry note date: __ DATE:12/30/2018 ATTN: TEDDY SCHWARZ MD Please exercise your independent, professional judgment in responding to the clarification form. Clinical indicators are provided on the bottom of this form for your review Please check appropriate box(s): [ ] Subarachnoid hemorrhage with loss of consciousness [ ] Subarachnoid hemorrhage without loss of consciousness Duration [ ] Concussion with loss of consciousness (30 min or less) [ ] Concussion with loss of consciousness (31 min to 59 min) [ ] Concussion with loss of consciousness (1 hour to 5 hours 59 min) [ ] Concussion with loss of consciousness (6 hours to 24 hours) [ ] Concussion with loss of consciousness (>24 hours with return to pre- existing conscious level) [ ] Concussion with loss of consciousness (>24 hours without return to pre- existing conscious level) [ ] Concussion with loss of consciousness (>24 hours with return to pre- existing conscious level with patient surviving) [ ] Concussion with loss of consciousness (Any duration with due to brain injury prior to regaining consciousness) [ ] Other diagnosis [ ] Unable to determine For continuity of documentation, please document condition throughout progress notes and discharge summary. Thank You. CLINICAL INDICATORS - SIGNS/ SYMPTOMS / LABS GCS-Eye opening-4,Verbal-5,Motor-6 [id number] in ED on 12/24 by Jg Casey Lost his balance and fell,After fall, the patient's loss of consciousness was unknown-Documented in H&P on 12/24 by Yesika HILLC The patient sustained subarachnoid and subdural hematoma with no loss of consciousness and no neurology deficits-Documented in DS on 12/26 by Emanuel Napoles RISK FACTORS HTN-Documented in H&P on 12/24 by Yesika bates PA-C History of CVA-Documented in Consultation on 12/24 by Ekta holland PA-C TREATMENTS: Consultation on 12/24 He is able to ambulate well and working with PT OT-Documented in DS on 12/26 by Emanuel Napoles PA-C Brain CT-Documented in 12/[address]-Documented in 12/24 [employer] Chief Payroll Clerk Crystal Reports Winform Viewer (This form is maintained as a part of the permanent medical record) 2014 [employer]. All Rights Reserved [email or web address] [not provided] [email or web address]
== END 2018-12-26 18:30 | DRG 83 ==
LOC: ERS 09:42 → IMCU/EMU 14:28 → SJJU 12-25 20:18
PROVIDERS: ADMIT Specialist; ATTEND Specialist
DX: S06.5X9A Traumatic subdural hemorrhage with loss of consciousness of unspecified duration, initial encounter (principal); I69.354 Hemiplegia and hemiparesis following cerebral infarction affecting left non-dominant side; E87.1 Hypo-osmolality and hyponatremia; N39.0 Urinary tract infection, site not specified; R40.2362 Coma scale, best motor response, obeys commands, at arrival to emergency department; R40.2142 Coma scale, eyes open, spontaneous, at arrival to emergency department; R40.2252 Coma scale, best verbal response, oriented, at arrival to emergency department; I10 Essential (primary) hypertension; Z87.440 Personal history of urinary (tract) infections; S30.0XXA Contusion of lower back and pelvis, initial encounter; F03.90 Unspecified dementia, unspecified severity, without behavioral disturbance, psychotic disturbance, mood disturbance, and anxiety; Z79.82 Long term (current) use of aspirin; Z66 Do not resuscitate; W18.39XA Other fall on same level, initial encounter; Y93.01 Activity, walking, marching and hiking; Y92.098 Other place in other non-institutional residence as the place of occurrence of the external cause; E78.5 Hyperlipidemia, unspecified; S06.349A Traumatic hemorrhage of right cerebrum with loss of consciousness of unspecified duration, initial encounter
CPT/HCPCS: 36415; 36416; 70450; 71260; 72125; 74177; 80048; 80053; 82533; 83735; 84100; 84134; 85025; 85610; 85730; 90471; 90715; 93005; G0103; J2405; J3475; Q9967; S0028

== ENCOUNTER 2020-05-30 11:54 | Inpatient (IN) | payer MEDICARE ==
[2020-05-30 13:22] LABS: Hemoglobin 9.5 g/dL (14.0-18.0); Mean Corpuscular HGB CONC 33.9 g/dL (32.0-36.0); Mean Corpuscular Hemoglobin 30.3 pg (27.0-31.0); Mean Corpuscular Volume 89.3 fL (78.0-98.0); Mean Platelet Volume 6.7 fL (7.4-10.4); Platelet Count 181 thou/uL (130-400); RBC Distribution Width 12.4 % (11.5-14.5); Red Blood Cell (RBC) Count 3.14 mill/uL (4.70-6.10); White Blood Cell (WBC) Count 15.9 thou/uL (4.8-10.8)
[2020-05-30 13:44] LABS: ALT (SGPT) 14 U/L (8-55); AST (SGOT) 22 U/L (5-34); Albumin 3.4 g/dL (3.4-4.8); Alkaline Phosphatase 70 U/L (40-110); Anion Gap 16 mmol/L (10-20); BUN (Urea Nitrogen) 35 mg/dL (8.4-25.7); Bilirubin, Total 0.9 mg/dL (0.2-1.2); Calc. Creatinine Clearance 0 mL/min (70-130); Calcium 8.7 mg/dL (7.8-10.44); Carbon Dioxide 29 mmol/L (23-31); Globulin 2.9 g/dL (2.4-3.5); Glucose 182 mg/dL (83-110); Protein, Total 6.3 g/dL (5.8-8.1)
[2020-05-30 13:47] LABS: Band 8 % (5-11); Lymphocytes 2 % (21-51); MDiff Complete? YES; Monocytes 4 % (0-10); Neutrophil 86 % (42-75); Platelet Morphology Comment Appears Adequate; Polychromasia SLIGHT = 2-3 cells (100X) (0-2/hpf)
[2020-05-30 13:53] LABS: Chloride 74 mmol/L (98-107); Potassium 2.7 mmol/L (3.5-5.1); Sodium 116 mmol/L (136-145)
[2020-05-30 14:01] LABS: Bacteria/HPF None Seen HPF (None Seen); Bilirubin Negative (Negative); Blood, Urine 3+ (Negative); Clarity Extra Turbid (Clear); Glucose, Urine (Dipstick) Normal (Negative); Ketone, Urine Negative (Negative); Leukocyte 500 Leu/uL (Negative); Nitrite Negative (Negative); Protein, Urine (Dipstick) 70 mg/dL (Neg-Trace); RBC/HPF Greater than 50 HPF (0-3); Specific Gravity, Urine 1.014 (1.002-1.036); Squamous Epithelial None Seen HPF (0-3); Urobilinogen Normal mg/dL (Less than 2); WBC/HPF Greater than 50 HPF (0-3)
[2020-05-30] MEDS ORDERED: cefTRIAXone\\ROCEPHIN 1 GM VIAL ONE (14:27)
[2020-05-30] MEDS ORDERED: Potassium Chloride 20 MEQ TAB ONE (14:27)
[2020-05-30 16:42] LABS: Lactic Acid 1.9 mmol/L (0.5-2.2)
[2020-05-30] MEDS ORDERED: Ondansetron PF 4 MG/2 ML Vial IVP PRN (16:52)
[2020-05-30] MEDS ORDERED: Senokot S 8.6-50 MG TAB PO PRN (16:52)
[2020-05-30] MEDS ORDERED: Ondansetron ODT 4 MG TAB PO PRN (16:52)
[2020-05-30] MEDS ORDERED: hydrALAZINE 20 MG/ML VIAL SLOW IVP PRN (16:52)
[2020-05-30] MEDS: Sodium Chloride 0.9% 1,000 ML IV SCH (17:21)
[2020-05-30] MEDS: Metoprolol Tartrate 50 MG TAB PO SCH ×2 (17:21→17:28)
[2020-05-30] MEDS: Acetaminophen 500 MG TAB PO PRN (18:15)
[2020-05-30 18:19] VITALS: BMI 19.2
[2020-05-30] MEDS: Famotidine 20 MG TAB PO SCH (20:28)
[2020-05-31 06:44] LABS: #Lymphocytes 0.8 thou/uL (1.20-3.40); #Monocytes 1.5 thou/uL (0.11-0.59); #Neutrophils 14.8 thou/uL (1.40-6.50); %Basophils 0.2 % (0.0-1.0); %Eosinophils 0.1 % (0.0-10.0); %Lymphocytes 4.5 % (21.0-51.0); %Monocytes 8.8 % (0.0-10.0); %Neutrophils 86.5 % (42.0-75.0); Hemoglobin 9.6 g/dL (14.0-18.0); Mean Corpuscular HGB CONC 32.3 g/dL (32.0-36.0); Mean Corpuscular Hemoglobin 29.8 pg (27.0-31.0); Mean Corpuscular Volume 92.2 fL (78.0-98.0); Platelet Count 170 thou/uL (130-400); RBC Distribution Width 12.4 % (11.5-14.5); Red Blood Cell (RBC) Count 3.21 mill/uL (4.70-6.10); White Blood Cell (WBC) Count 17.1 thou/uL (4.8-10.8)
[2020-05-31 06:59] LABS: SARS-CoV-2 PCR by NAA Not Detected (NotDetected)
[2020-05-31 08:15] LABS: Chloride 76 mmol/L (98-107); Potassium 3.2 mmol/L (3.5-5.1)
[2020-05-31 08:16] LABS: Calcium 8.3 mg/dL (7.8-10.44); Glucose 102 mg/dL (83-110)
[2020-05-31 08:18] LABS: Anion Gap 13 mmol/L (10-20); Carbon Dioxide 30 mmol/L (23-31)
[2020-05-31 08:20] LABS: BUN (Urea Nitrogen) 35 mg/dL (8.4-25.7); Calc. Creatinine Clearance 44 mL/min (70-130)
[2020-05-31 08:29] LABS: Sodium 116 mmol/L (136-145)
[2020-05-31] MEDS ORDERED: Amlodipine 5 MG TAB PO SCH (09:00)
[2020-05-31] MEDS ORDERED: Lisinopril 20 MG TAB PO SCH (09:00)
[2020-05-31] MEDS ORDERED: Metoprolol Tartrate 25 MG TAB PO SCH (09:00)
[2020-05-31] MEDS: Potassium Bicarbonate/Cit Ac 20 MEQ TAB PO SCH ×2 (09:19→18:08)
[2020-05-31] MEDS: Metoprolol Tartrate 50 MG TAB PO SCH ×2 (09:19→17:31)
[2020-05-31] MEDS: Famotidine 20 MG TAB PO SCH ×2 (09:20→20:54)
[2020-05-31] MEDS: Oxybutynin 5 MG TAB PO SCH ×2 (09:20→20:54)
[2020-05-31] MEDS: Acetaminophen 500 MG TAB PO PRN (09:20)
[2020-05-31] MEDS: Lorazepam 0.5 MG TAB PO PRN ×2 (09:20→20:53)
[2020-05-31] MEDS: Ascorbic Acid 500 mg Chewable Tablet PO SCH (09:20)
[2020-05-31] MEDS: cefTRIAXone\\ROCEPHIN 2 GM in Sodium Chloride 0.9% 100 ML IVPB SCH (14:22)
[2020-05-31] MEDS: Sodium Chloride 0.9% 1,000 ML IV SCH (14:23)
[2020-05-31 18:21] LABS: Anion Gap 16 mmol/L (10-20); BUN (Urea Nitrogen) 33 mg/dL (8.4-25.7); Calc. Creatinine Clearance 45 mL/min (70-130); Calcium 8.9 mg/dL (7.8-10.44); Carbon Dioxide 28 mmol/L (23-31); Chloride 75 mmol/L (98-107); Glucose 116 mg/dL (83-110); Potassium 3.5 mmol/L (3.5-5.1)
[2020-05-31 18:30] LABS: Sodium 115 mmol/L (136-145)
[2020-06-01] MEDS: Sodium Chloride 0.9% 1,000 ML IV SCH ×2 (00:27→19:56)
[2020-06-01] MEDS: Potassium Bicarbonate/Cit Ac 20 MEQ TAB PO SCH ×2 (08:30→17:15)
[2020-06-01] MEDS: Famotidine 20 MG TAB PO SCH ×2 (08:30→19:56)
[2020-06-01] MEDS: Oxybutynin 5 MG TAB PO SCH ×2 (08:30→19:57)
[2020-06-01] MEDS: Metoprolol Tartrate 50 MG TAB PO SCH ×2 (08:30→17:15)
[2020-06-01] MEDS: Lorazepam 0.5 MG TAB PO PRN (08:30)
[2020-06-01] MEDS: Ascorbic Acid 500 mg Chewable Tablet PO SCH (08:30)
[2020-06-01] MEDS ORDERED: Tolvaptan 15 MG TAB PO SCH (09:00)
[2020-06-01] MEDS ORDERED: Aquaphor 30 GM JAR TOP SCH (09:00)
[2020-06-01 09:14] LABS: Anion Gap 17 mmol/L (10-20); BUN (Urea Nitrogen) 24 mg/dL (8.4-25.7); Calc. Creatinine Clearance 57 mL/min (70-130); Calcium 9.1 mg/dL (7.8-10.44); Carbon Dioxide 28 mmol/L (23-31); Chloride 80 mmol/L (98-107); Glucose 99 mg/dL (83-110); Potassium 3.8 mmol/L (3.5-5.1); Sodium 121 mmol/L (136-145)
[2020-06-01 09:15] LABS: Band 31 % (5-11); Hemoglobin 11.5 g/dL (14.0-18.0); Lymphocytes 4 % (21-51); MDiff Complete? YES; Mean Corpuscular HGB CONC 34.4 g/dL (32.0-36.0); Mean Corpuscular Hemoglobin 31.5 pg (27.0-31.0); Mean Corpuscular Volume 91.5 fL (78.0-98.0); Mean Platelet Volume 7.1 fL (7.4-10.4); Monocytes 9 % (0-10); Neutrophil 53 % (42-75); Platelet Count 194 thou/uL (130-400); Platelet Morphology Comment Appears Adequate; Polychromasia SLIGHT = 2-3 cells (100X) (0-2/hpf); RBC Distribution Width 12.3 % (11.5-14.5); Reactive Lymphocytes 3 % (0-10); Red Blood Cell (RBC) Count 3.64 mill/uL (4.70-6.10); White Blood Cell (WBC) Count 17.9 thou/uL (4.8-10.8)
[2020-06-01] MEDS ORDERED: MD-Gastroview 120 ML BOT ONE (12:40)
[2020-06-01] MEDS ORDERED: Fleet Enema 133 ML BOT PR SCH (13:45)
[2020-06-01] MEDS: cefTRIAXone\\ROCEPHIN 2 GM in Sodium Chloride 0.9% 100 ML IVPB SCH (16:36)
[2020-06-01] MEDS: Polyethylene Glycol 3350 17 GM Packet PO SCH (19:57)
[2020-06-02] MEDS: Sodium Chloride 0.9% 1,000 ML IV SCH ×2 (05:23→17:24)
[2020-06-02] MEDS: Potassium Bicarbonate/Cit Ac 20 MEQ TAB PO SCH ×2 (08:54→17:24)
[2020-06-02] MEDS: Oxybutynin 5 MG TAB PO SCH ×3 (08:56→21:21)
[2020-06-02] MEDS: Ascorbic Acid 500 mg Chewable Tablet PO SCH (08:56)
[2020-06-02] MEDS: Metoprolol Tartrate 50 MG TAB PO SCH ×2 (08:56→17:24)
[2020-06-02] MEDS: Polyethylene Glycol 3350 17 GM Packet PO SCH ×2 (08:57→21:25)
[2020-06-02] MEDS: Famotidine 20 MG TAB PO SCH ×2 (09:03→21:16)
[2020-06-02 09:15] LABS: Anion Gap 7 mmol/L (10-20); BUN (Urea Nitrogen) 13 mg/dL (8.4-25.7); Calc. Creatinine Clearance 71 mL/min (70-130); Calcium 8.3 mg/dL (7.8-10.44); Carbon Dioxide 35 mmol/L (23-31); Chloride 88 mmol/L (98-107); Glucose 114 mg/dL (83-110); Potassium 4.2 mmol/L (3.5-5.1); Sodium 126 mmol/L (136-145)
[2020-06-02 09:28] LABS: Band 9 % (5-11); Hemoglobin 9.3 g/dL (14.0-18.0); Lymphocytes 5 % (21-51); MDiff Complete? YES; Mean Corpuscular HGB CONC 34.2 g/dL (32.0-36.0); Mean Corpuscular Hemoglobin 31.3 pg (27.0-31.0); Mean Corpuscular Volume 91.7 fL (78.0-98.0); Mean Platelet Volume 6.7 fL (7.4-10.4); Monocytes 12 % (0-10); Neutrophil 73 % (42-75); Platelet Count 220 thou/uL (130-400); Platelet Morphology Comment Appears Adequate; RBC Distribution Width 12.4 % (11.5-14.5); Red Blood Cell (RBC) Count 2.97 mill/uL (4.70-6.10); White Blood Cell (WBC) Count 10.8 thou/uL (4.8-10.8)
[2020-06-02] MEDS: cefTRIAXone\\ROCEPHIN 2 GM in Sodium Chloride 0.9% 100 ML IVPB SCH (14:24)
[2020-06-03] MEDS: Sodium Chloride 0.9% 1,000 ML IV SCH ×2 (00:23→14:30)
[2020-06-03 06:36] LABS: Anion Gap 12 mmol/L (10-20); BUN (Urea Nitrogen) 9 mg/dL (8.4-25.7); Calc. Creatinine Clearance 74 mL/min (70-130); Calcium 8.2 mg/dL (7.8-10.44); Carbon Dioxide 26 mmol/L (23-31); Chloride 89 mmol/L (98-107); Glucose 108 mg/dL (83-110); Potassium 4.8 mmol/L (3.5-5.1); Sodium 122 mmol/L (136-145)
[2020-06-03] MEDS: Metoprolol Tartrate 50 MG TAB PO SCH ×2 (08:12→16:25)
[2020-06-03] MEDS: Polyethylene Glycol 3350 17 GM Packet PO SCH ×2 (08:12→20:56)
[2020-06-03] MEDS: Oxybutynin 5 MG TAB PO SCH ×2 (08:12→20:55)
[2020-06-03] MEDS: Famotidine 20 MG TAB PO SCH ×2 (08:12→20:56)
[2020-06-03] MEDS: Potassium Bicarbonate/Cit Ac 20 MEQ TAB PO SCH ×2 (08:12→16:24)
[2020-06-03] MEDS: Ascorbic Acid 500 mg Chewable Tablet PO SCH (08:12)
[2020-06-03] MEDS ORDERED: Tolvaptan 15 MG TAB PO SCH (11:00)
[2020-06-03] MEDS: TOLVAPTAN 30 MG TAB PO SCH ×2 (12:46→14:22)
[2020-06-03] MEDS: cefTRIAXone\\ROCEPHIN 2 GM in Sodium Chloride 0.9% 100 ML IVPB SCH (14:26)
[2020-06-04] MEDS: Sodium Chloride 0.9% 1,000 ML IV SCH (05:45)
[2020-06-04 06:45] LABS: Anion Gap 12 mmol/L (10-20); BUN (Urea Nitrogen) 8 mg/dL (8.4-25.7); Calc. Creatinine Clearance 69 mL/min (70-130); Calcium 8.9 mg/dL (7.8-10.44); Carbon Dioxide 26 mmol/L (23-31); Chloride 97 mmol/L (98-107); Glucose 169 mg/dL (83-110); Potassium 4.6 mmol/L (3.5-5.1); Sodium 130 mmol/L (136-145)
[2020-06-04] MEDS: Famotidine 20 MG TAB PO SCH ×2 (08:31→21:50)
[2020-06-04] MEDS: Ascorbic Acid 500 mg Chewable Tablet PO SCH (08:35)
[2020-06-04] MEDS: Potassium Bicarbonate/Cit Ac 20 MEQ TAB PO SCH ×2 (08:35→16:30)
[2020-06-04] MEDS: Metoprolol Tartrate 50 MG TAB PO SCH ×2 (08:35→16:30)
[2020-06-04] MEDS: Oxybutynin 5 MG TAB PO SCH ×2 (08:35→21:50)
[2020-06-04] MEDS: Polyethylene Glycol 3350 17 GM Packet PO SCH ×2 (08:36→21:50)
[2020-06-04] MEDS ORDERED: Bisacodyl 5 MG TAB PO SCH ×2 (09:45→15:15)
[2020-06-04] MEDS: cefTRIAXone\\ROCEPHIN 2 GM in Sodium Chloride 0.9% 100 ML IVPB SCH (14:35)
[2020-06-04] MEDS ORDERED: Bisacodyl 10 MG SUPP PR SCH (16:30)
[2020-06-04] MEDS ORDERED: Fleet Enema 133 ML BOT PR SCH (18:45)
[2020-06-04] MEDS ORDERED: Lidocaine 5% Patch TD SCH (21:00)
[2020-06-04] MEDS: Cefdinir 300 MG CAP PO SCH (21:50)
[2020-06-05 05:48] LABS: Hemoglobin 10.5 g/dL (14.0-18.0); Mean Corpuscular HGB CONC 32.1 g/dL (32.0-36.0); Mean Corpuscular Hemoglobin 29.5 pg (27.0-31.0); Mean Corpuscular Volume 91.9 fL (78.0-98.0); Platelet Count 322 thou/uL (130-400); RBC Distribution Width 12.9 % (11.5-14.5); Red Blood Cell (RBC) Count 3.57 mill/uL (4.70-6.10); White Blood Cell (WBC) Count 9.8 thou/uL (4.8-10.8)
[2020-06-05 06:13] LABS: Anion Gap 14 mmol/L (10-20); BUN (Urea Nitrogen) 10 mg/dL (8.4-25.7); Calc. Creatinine Clearance 71 mL/min (70-130); Calcium 8.9 mg/dL (7.8-10.44); Carbon Dioxide 23 mmol/L (23-31); Chloride 94 mmol/L (98-107); Glucose 114 mg/dL (83-110); Potassium 4.6 mmol/L (3.5-5.1); Sodium 126 mmol/L (136-145)
[2020-06-05] MEDS: Potassium Bicarbonate/Cit Ac 20 MEQ TAB PO SCH (07:54)
[2020-06-05] MEDS: Famotidine 20 MG TAB PO SCH (07:55)
[2020-06-05] MEDS: Cefdinir 300 MG CAP PO SCH (07:55)
[2020-06-05] MEDS: Ascorbic Acid 500 mg Chewable Tablet PO SCH (07:55)
[2020-06-05] MEDS: Oxybutynin 5 MG TAB PO SCH (07:56)
[2020-06-05] MEDS: Polyethylene Glycol 3350 17 GM Packet PO SCH (07:56)
[2020-06-05] MEDS: Metoprolol Tartrate 50 MG TAB PO SCH (08:00)
[2020-06-05] MEDS ORDERED: Lidocaine Patch Removal TOP SCH (09:00)
[2020-06-05] MEDS ORDERED: TOLVAPTAN 30 MG TAB PO SCH ×2 (10:30→11:00)
[2020-06-05] MEDS ORDERED: Tolvaptan 15 MG TAB PO SCH (11:00)
[2020-06-05 18:38] VITALS: BP 138/70; TEMP 98.1
== END 2020-06-05 13:37 | disposition home or self-care (01) | DRG 690 ==
LOC: ERS 11:54 → ERHOLD 15:21 → OBSVTOIN 16:52 → T4-A 17:02
PROVIDERS: ADMIT Internal Medicine; ATTEND Internal Medicine
DX: N39.0 Urinary tract infection, site not specified (principal); E87.1 Hypo-osmolality and hyponatremia; N17.9 Acute kidney failure, unspecified; K59.00 Constipation, unspecified; I10 Essential (primary) hypertension; E78.5 Hyperlipidemia, unspecified; R33.9 Retention of urine, unspecified; E87.6 Hypokalemia; Z66 Do not resuscitate; R53.81 Other malaise; M54.5 Low back pain; B96.20 Unspecified Escherichia coli [E. coli] as the cause of diseases classified elsewhere; D64.9 Anemia, unspecified; R32 Unspecified urinary incontinence; F03.90 Unspecified dementia, unspecified severity, without behavioral disturbance, psychotic disturbance, mood disturbance, and anxiety; Z87.440 Personal history of urinary (tract) infections; Z86.73 Personal history of transient ischemic attack (TIA), and cerebral infarction without residual deficits
CPT/HCPCS: 36415; 51702; 71045; 72100; 74018; 74176; 74283; 80048; 80053; 81003; 81015; 82607; 82746; 83605; 83930; 83935; 84300; 84443; 84484; 85025; 85027; 87040; 87635; 96365; G0378; J0696; J2405; J3490; Q9963; U0003; U0005